=== PATIENT | male | born 1995 | race African-American/Black ===

== ENCOUNTER 2018-08-13 00:47 | Emergency (ER) | payer BC, OTHER ==
--- NOTE | 2018-08-13 01:18 | RADIOLOGY REPORT (SQ) ---
CLINICAL DATA: 23-year-old male status post fall with nail stuck in hand TECHNICAL DATA: Three x-ray views of the left hand were performed on 08/13/2018 at 1:24 AM. COMPARISONS: None FINDINGS: There is a radiopaque metallic foreign object resembling a portion of a nail within the soft tissues along the region of the hypothenar eminence . There is no clear evidence of subcutaneous emphysema. There appear to be additional punctate radiopaque foreign bodies within the adjacent volar soft tissues. There is no evidence of acute fracture or dislocation. No arthritic or degenerative changes are identified. No lytic or sclerotic bone lesions are seen. Bone mineralization is normal IMPRESSION: 1. Radiopaque metallic foreign object resembling a portion of the nail within the soft tissues along the region of the hypothenar eminence. There are additional punctate radiopaque foreign bodies within the adjacent volar soft tissues. 2. No evidence of acute osseous injury.
[2018-08-13] MEDS ORDERED: DIPH/PERTUSS(ACELL)/TETANUS VAC/PF 0.5 ML SYR (>=10YO) IM ONE (02:09)
[2018-08-13] MEDS ORDERED: LIDOCAINE 1%/EPINEPHRINE INJ 20 ML VIAL INJ ONE (02:09)
--- NOTE | 2018-08-13 02:11 | ER Document Report ---
ED General - General Chief Complaint: Foreign Body Stated Complaint: NAIL IN LEFT HAND Time Seen by Provider: 08/13/18 02:03 Notes: Patient is a 23-year-old male presents with complaint of accidentally getting a nail stuck in the the palm of the left hand. Now went through the soft tissue of the hyperthenar portion of the palm. Patient is unsure when his last tetanus shot was. He denies any other complaints at this time. - Related Data Allergies/Adverse Reactions: No Known Allergies Allergy (Verified 02/26/14 11:50) Past Medical History - Social History Smoking Status: Never Smoker Frequency of alcohol use: None Drug Abuse: None Family History: None - Immunizations Immunizations up to date: Yes Hx Diphtheria, Pertussis, Tetanus Vaccination: Yes Review of Systems - Review of Systems Notes: My Normal Review Basic REVIEW OF SYSTEMS: CONSTITUTIONAL : Denies fever, chills, or sweats. MUSCULOSKELETAL: Nail in left hand. SKIN: Denies rash or skin lesions. HEMATOLOGIC : No active bleeding. NEUROLOGICAL: Denies sensory or motor loss. ALL OTHER SYSTEMS REVIEWED AND NEGATIVE. Physical Exam - Vital signs Vitals: Temp Pulse Resp BP Pulse Ox 98.1 F 61 16 138/84 H 98 08/13/18 01:07 08/13/18 01:07 08/13/18 01:07 08/13/18 01:07 08/13/18 01:07 - Notes Notes: General Appearance: Well nourished, alert, cooperative, no acute distress, no obvious discomfort. Well-appearing. Vitals: reviewed, See vital signs table. Extremities: Good strength and movement of all fingers of the hand. Patient is able move the thumb without difficulty but does have a low bit of pain when doing full opposition. Distal sensation intact. Patient does have a nail that appears to be in the soft tissue of the hyper thenar eminence of the palm of the left hand. No active bleeding. Neuro: speech clear, oriented x 3, normal affect, responds appropriately to questions. Course - Re-evaluation Re-evalutation: 08/13/18 03:21 Nail was removed. Patient given tetanus shot. Xeroform gauze placed on the hand. Patient to return to ER if he has any redness or swelling to the hand or any signs of infection. Being that the wound was dirty from a dirty nail I will place patient on prophylactic antibiotic to take for the next 5 days. Dictation of this chart was performed using voice recognition software; therefore, there may be some unintended grammatical errors. - Vital Signs Vital signs: Temp Pulse Resp BP Pulse Ox 98.4 F 91 12 109/59 L 99 08/13/18 03:02 08/13/18 03:02 08/13/18 03:02 08/13/18 03:02 08/13/18 03:02 Procedures - Additional Procedures foreign body removal Notes: 08/13/18 03:20 8 where the nail was embedded in the hand was numbed with lidocaine with epi. Used approximately 2 mL's of lidocaine with epi. I cleaned the area with chlorhexidine before numbing it. I then used forceps to grasp and pull with the nail out. Wound was then thoroughly irrigated with saline and covered with a Xeroform gauze. Discharge - Discharge Clinical Impression: Foreign body in hand Qualifiers: Encounter type: initial encounter Laterality: left Qualified Code(s): S60.552A - Superficial foreign body of left hand, initial encounter Condition: Good Disposition: HOME, SELF-CARE Additional Instructions: Please change the dressing after 24 hours. Yo can than change the dressing 1-2 times a day and be sure to gently wash with soap and water between dressing changes. return to the ER immediately if you have increasing swelling, redness, or any signs of infection in your hand. Prescriptions: Cephalexin Monohydrate [Keflex 500 mg Capsule] 500 mg PO BID #10 capsule
[2018-08-13] MEDS ORDERED: CEPHALEXIN 500 MG CAPSULE PO ONE (02:56)
[2018-08-13 03:04] VITALS: BP 109/59
== END 2018-08-13 03:05 | disposition home or self-care (01) ==
LOC: ER 00:47
DX: S60.552A Superficial foreign body of left hand, initial encounter (principal); W45.0XXA Nail entering through skin, initial encounter; Z23 Encounter for immunization
CPT/HCPCS: 99283; 90471; 73130; 90715; J3490

== ENCOUNTER 2019-04-17 11:38 | Emergency (ER) | payer OTHER ==
--- NOTE | 2019-04-17 13:02 | ER Document Report ---
ED General - General Chief Complaint: Laceration Stated Complaint: LEFT LEG INJURY Time Seen by Provider: 04/17/19 13:01 TRAVEL OUTSIDE OF THE [place] IN LAST 30 DAYS: No - HPI Notes: 23-year-old male to the emergency department with father with complaints of laceration to the back of the left knee and occurred just prior to arrival from [employer]. Patient states that he had put the [employer] down for just a second to talk to his father and accidentally hit the [employer] as it was running against his leg. Patient states he is up-to-date on his tetanus immunization. That he has had no change in range of movement. Bleeding has been controlled since arrival. - Related Data Allergies/Adverse Reactions: No Known Allergies Allergy (Verified 02/26/14 11:50) Past Medical History - General Information source: Patient, Parent - Social History Smoking Status: Never Smoker Frequency of alcohol use: None Drug Abuse: None Family History: None Patient has suicidal ideation: No Patient has homicidal ideation: No Renal/ Medical History: Denies: Hx Peritoneal Dialysis - Immunizations Immunizations up to date: Yes Hx Diphtheria, Pertussis, Tetanus Vaccination: Yes Review of Systems - Review of Systems Constitutional: denies: Chills, Fever EENT: No symptoms reported Cardiovascular: denies: Chest pain, Palpitations, Syncope, Dizziness, Lightheaded Respiratory: denies: Cough, Short of breath Gastrointestinal: denies: Abdominal pain, Diarrhea, Nausea, Vomiting Genitourinary: No symptoms reported Skin: Lesions - Laceration to the back of the left leg Hematologic/Lymphatic: No symptoms reported Neurological/Psychological: No symptoms reported -: Yes All other systems reviewed and negative Physical Exam - Vital signs Vitals: Temp Pulse Resp BP Pulse Ox 99 F 89 20 132/91 H 100 04/17/19 11:41 04/17/19 11:41 04/17/19 11:41 04/17/19 11:41 04/17/19 11:41 Interpretation: Normal - General General appearance: Appears well In distress: None - HEENT Head: Normocephalic, Atraumatic Eyes: Normal Pupils: PERRL - Respiratory Respiratory status: No respiratory distress Chest status: Nontender Breath sounds: Normal Chest palpation: Normal - Cardiovascular Rhythm: Regular Heart sounds: Normal auscultation Murmur: No - Skin Skin Temperature: Warm Skin Moisture: Dry Skin Color: Normal Skin irregularity: Laceration - There is a wide laceration to the lateral aspect of the posterior leg to the level of the knee. The chainsaw cut through the adipose tissue but does not appear to have involved any tendon or muscular tissue. Bleeding is controlled. Patient has 5 out of 5 strength in flexion and extension at the level of the knee against resistance. Location of irregularity: Extremities Course - Vital Signs Vital signs: Temp Pulse Resp BP Pulse Ox 99 F 89 20 132/91 H 100 04/17/19 11:41 04/17/19 11:41 04/17/19 11:41 04/17/19 11:41 04/17/19 11:41 - Diagnostic Test Radiology reviewed: Image reviewed, Reports reviewed Radiology results interpreted by me: 04/17/19 14:34 No FB seen - Transfer of Care Notes: 04/17/19 14:34 Impression: Left posterior leg laceration from chainsaw. Complicated repair tolerated well by patient. 3 Vicryl's were placed subcutaneously to approximate the wound and then ten 3-0 Ethilon sutures were applied to completely close the wound. 2 horizontal mattresses were applied with a 3-0 and then 8 interrupted were applied. Patient is up-to-date on his tetanus immunization. There was no foreign body seen on x-ray. He has strong range of motion in his leg against resistance with 5 out of 5 strength in flexion and extension. Doubt tendon involvement. When wound was explored extensively, no muscle belly laceration was appreciated. Since patient was using a chainsaw and the wound was initially dirty around the edges, will place on Keflex for prophylaxis. He did on appropriate suture care and will have the patient return in 14 days for suture removal. Urged to return if any fevers, worsening pain, redness, purulent drainage. Dad and patient agree with the plan. Procedures - Laceration/Wound Repair Left Posterior Leg Time completed: 14:28 Wound length (cm): 6 Wound's Depth, Shape: Other - Wound extends through subcutaneous adipose tissue to the level of the muscle belly but does not involve the muscle or tendon Laceration pre-procedure: Sterile PPE donned, Sterile drapes applied, Shur-Clens applied Anesthetic type: 1% Lidocaine Volume Anesthetic (mLs): 9 Wound explored: No foreign body removed, Contaminated - dirt surrounding wound Irrigated w/ Saline (mLs): 200 Wound Debrided: Minimal Wound Repaired With: Sutures Suture Size/Type: 3:0, Ethilon - 2 horizontal mattress, 8 interrupted Number of Sutures: 10 Layer Closure?: Yes Deep Layer Suture Size/Type: 4:0, Other - three 4-0 vicryl applied to the subcutaneous tissue to bring the wound together Number Deep Layer Sutures: 3 Post-procedure wound care: Other - non adhesive dressing Post-procedure NV exam normal: Yes Complications: No Notes: 04/17/19 14:32 total time repair -- 40 minutes Discharge - Discharge Clinical Impression: Laceration of leg Condition: Good Disposition: HOME, SELF-CARE Instructions: Prophylactic Antibiotic ([facility]), Laceration Care ([facility]) Additional Instructions: KEEP WOUND CLEAN AND DRY. MAY WASH DAILY WITH WARM SOAPY WATER. DO NOT SOAK THE STITCHES IN WATER FOR THE FIRST 3-4 DAYS. TAKE ANTIBIOTICS. SUTURE REMOVAL IN 14 DAYS. RETURN IF ANY WORSENING PAIN, FEVERS, REDNESS, INCREASED SW ELLING, PUS DRAINING FROM THE WOUND. Prescriptions: Cephalexin Monohydrate [Keflex 500 mg Capsule] 500 mg PO QID 7 Days #28 capsule Hydrocodone/Acetaminophen [[place] 5-325 Tablet] 1 each PO TID #8 tablet
[2019-04-17] MEDS ORDERED: HYDROCODONE/ACETAMINOPHEN 5-325 MG TABLET PO ONE (13:17)
[2019-04-17] MEDS ORDERED: LIDOCAINE 1% INJ-PF (10 MG/ML) 30 ML SDV INJ ONE (13:17)
--- NOTE | 2019-04-17 13:48 | RADIOLOGY REPORT (SQ) ---
EXAM DESCRIPTION: KNEE LEFT 2 VIEWS COMPLETED DATE/TIME: 04/17/2019 1:35 pm REASON FOR STUDY: laceration, eval retained FB COMPARISON: None. NUMBER OF VIEWS: Two views. TECHNIQUE: AP and lateral radiographic images acquired of the left knee. LIMITATIONS: None. FINDINGS: MINERALIZATION: Normal. BONES: No acute fracture or dislocation. No worrisome bone lesions. JOINT: No effusion. SOFT TISSUES: No soft tissue swelling. No radio-opaque foreign body. OTHER: No other significant finding. IMPRESSION: NEGATIVE STUDY OF THE LEFT KNEE. NO RADIOGRAPHIC EVIDENCE OF ACUTE INJURY. TECHNICAL DOCUMENTATION: JOB ID: [id number] [employer]- All Rights Reserved Reading location - IP/workstation name: [email or web address]
[2019-04-17 14:56] VITALS: BP 109/53
== END 2019-04-17 14:56 | disposition home or self-care (01) ==
LOC: ER 11:38
DX: S81.812A Laceration without foreign body, left lower leg, initial encounter (principal); W29.3XXA Contact with powered garden and outdoor hand tools and machinery, initial encounter; Y93.89 Activity, other specified
CPT/HCPCS: 99283; 73560; 12032; J3490

== ENCOUNTER 2020-07-06 10:16 | Emergency (ER) | payer OTHER ==
[2020-07-06 11:17] VITALS: BP 120/66
[2020-07-06] MEDS ORDERED: ONDANSETRON ODT 4 MG TAB (6 TAB/ER DISP) PO PRN (11:40)
--- NOTE | 2020-07-06 17:23 | ER Document Report ---
Entered by EARLENE ROJAS SCRIBE 07/06/20 1138 Acting as scribe for:LING BEARDEN MD ED GI/ - General Chief Complaint: Nausea Stated Complaint: VOMITING/DIAHERRA Time Seen by Provider: 07/06/20 11:00 Mode of Arrival: Ambulatory Information source: Patient Notes: This 25-year-old male patient presents to the emergency department today with complaints of diarrhea and nausea for the last few days. Patient works at [employer] and last night he had diarrhea and vomiting while at work. He was told by his work that he needed to be tested for COVID prior to returning. He denies any abdominal pain. TRAVEL OUTSIDE OF THE [place] IN LAST 30 DAYS: No - Related Data Allergies/Adverse Reactions: No Known Allergies Allergy (Verified 02/26/14 11:50) Past Medical History - General Information source: Patient - Social History Smoking Status: Never Smoker Cigarette use (# per day): No Frequency of alcohol use: None Drug Abuse: None Occupation: [employer] Lives with: Family Family History: None - Medical History Medical History: Negative Surgical Hx: Negative - Immunizations Immunizations up to date: Yes Hx Diphtheria, Pertussis, Tetanus Vaccination: Yes Review of Systems - Review of Systems Constitutional: No symptoms reported EENT: No symptoms reported Cardiovascular: No symptoms reported Respiratory: No symptoms reported Gastrointestinal: See HPI, Diarrhea, Nausea. denies: Abdominal pain Genitourinary: No symptoms reported Male Genitourinary: No symptoms reported Musculoskeletal: No symptoms reported Skin: No symptoms reported Hematologic/Lymphatic: No symptoms reported Neurological/Psychological: No symptoms reported -: Yes All other systems reviewed and negative Physical Exam - Vital signs Vitals: Temp Pulse Resp BP Pulse Ox 98.0 F 67 16 120/66 100 07/06/20 11:16 07/06/20 11:16 07/06/20 11:16 07/06/20 11:16 07/06/20 11:16 - Notes Notes: Physical Exam: General: Alert, appears well. HEENT: Normocephalic. Atraumatic. PERRL. Extraocular movements intact. Oropharynx clear. Neck: Supple. Non-tender. Respiratory: No respiratory distress. Clear and equal breath sounds bilaterally. Cardiovascular: Regular rate and rhythm. Abdominal: Normal Inspection. Non-tender. No distension. Normal Bowel Sounds. Back: No gross abnormalities. Extremities: Moves all four extremities. Upper extremities: Normal inspection. Normal ROM. Lower extremities: Normal inspection. No edema. Normal ROM. Neurological: Normal cognition. AAOx4. Normal speech. Psychological: Normal affect. Normal Mood. Skin: Warm. Dry. Normal color. Course - Re-evaluation Re-evalutation: 07/06/20 11:42 The patient was evaluated during the global COVID-19 pandemic and that diagnosis was suspected/considered upon their initial presentation. Their evaluation, t reatment and testing was consistent with current guidelines for patients who present with complaints or symptoms that may be related to COVID-19. - Vital Signs Vital signs: Temp Pulse Resp BP Pulse Ox 98.0 F 67 16 120/66 100 07/06/20 11:16 07/06/20 11:16 07/06/20 11:16 07/06/20 11:16 07/06/20 11:16 Discharge - Discharge Clinical Impression: Nausea, Encounter for laboratory testing for COVID-19 virus Diarrhea Qualifiers: Diarrhea type: unspecified type Qualified Code(s): R19.7 - Diarrhea, unspecified Condition: Stable Disposition: HOME, SELF-CARE Instructions: COVID-19 Guidance for Persons Under Investigation Additional Instructions: Nausea or Vomiting, Nonspecific Vomiting (or nausea without vomiting) can be caused by many different problems. Of course, it can mean that something's wrong with the stomach, such as "stomach flu," ulcers, or inflammation. But it can also be a symptom of a problem that has nothing to do with the stomach or intestines. Vomiting is common with severe headaches, earaches, and tonsillitis. We see it with pneumonia or heart attacks. Drugs can cause nausea. Many abdominal problems cause vomiting; for example, gallstones, kidney stones, pancreatitis, and intestinal obstruction (blocked bowels). In most cases, curing the vomiting depends on fixing the problem that caused it. For temporary relief, we may use an anti-nausea medicine. For home use, we can prescribe suppositories, chewable pills, pills that dissolve in the mouth, or liquid anti-nausea drugs. If the vomiting seems to be caused by a problem in the stomach, acid-suppressing drugs may be prescribed as well. It's important to avoid dehydration. Sip clear liquids. Take increasing amounts of fluid over the first 24 hours. Then start small amounts of bland foods (such as dry toast, applesauce, mashed potato). Avoid aspirin, tobacco, and alcohol. Gradually resume your usual diet. If the vomiting worsens, if the problem that's making you vomit worsens, or if there's evidence of bleeding in the stomach (such as black, tarry stool, bloody or black vomit, or lightheadedness), you should return immediately. Call your doctor if you aren't improved in 24 to 36 hours. Diarrhea Diarrhea means frequent, watery stools. There are many causes. Any problem that keeps the intestinal tract from absorbing water from the stool can lead to diarrhea. A sudden new diarrhea problem is usually caused by a virus, food sensitivity, toxic bacteria, or drugs. In this case, we expect the problem to go away soon. Testing is done only if you seem seriously ill from the diarrhea. If you have chronic diarrhea, or diarrhea that keeps coming back, we need to find out why. Chronic diarrhea can be due to inflammation of the bowels such as Crohn's disease or ulcerative colitis, food sensitivity such as intolerance to lactose or wheat protein, irritable bowel syndrome, and other problems. If your diarrhea is a significant problem but it's not clear why you have it, we'll refer you to a specialist for further testing. During an episode of diarrhea, drink small amounts (two to six ounces) of clear liquids (soft drinks, sport drinks, herb teas, broth, etc). Take fluids frequently to prevent dehydration. It's usually not a problem to take mild anti- diarrhea medication such as Kaopectate or Pepto-Bismol. As the diarrhea eases, advance to small amounts of bland food (mashed potato, toast) for 24 hours. Call the physician if blood appears in your vomit or stool, if vomiting lasts longer than 24 hours, if the abdominal pain worsens or becomes localized to one area, if you develop high fever, or if you become lightheaded and weak. Take the Zofran for nausea if needed. Drink plenty of cool clear liquids throughout the day. Try Imodium-AD for diarrhea if needed. Self isolate at home until you get the results of the COVID test. RETURN TO THE EMERGENCY ROOM IF ANY NEW OR WORSENING SYMPTOMS. Prescriptions: Ondansetron [Zofran Odt 4 mg Tablet] 1 - 2 tab PO Q4H PRN #14 tab.rapdis PRN Reason: I personally performed the services described in the documentation, reviewed and edited the documentation which was dictated to the scribe in my presence, and it accurately records my words and actions.
== END 2020-07-06 11:50 | disposition home or self-care (01) ==
LOC: ER 10:16
DX: R11.2 Nausea with vomiting, unspecified (principal); R19.7 Diarrhea, unspecified; Z20.828 Contact with and (suspected) exposure to other viral communicable diseases
CPT/HCPCS: 99283; U0003; C9803; 87635